=== PATIENT | female | born 1995 | race Caucasian/White ===

== ENCOUNTER 2017-07-27 17:30 | Emergency (ER) | payer SELFPAY ==
[~2017-07-27] VITALS: Ht 157.5 cm; Wt 47.6 kg
[2017-07-27] MEDS ORDERED: KEPPRA500 M4 ORAL (17:38)
[2017-07-27] MEDS ORDERED: TOPIRAMATE25 MG ORAL (17:39)
[2017-07-27 18:07] VITALS: BP 102/68
[2017-07-27 18:11] VITALS: BP 100/58
--- NOTE | 2017-07-27 21:30 | Emergency Room Report ---
History of Present Illness General Chief Complaint: Seizure Source: Patient, EMS Present Illness HPI 22YOF BIBEMS with alleged seizure. Patient cites known epilepsy, compliant with BID keppra and topamax. Took Today. Has enough on her Rx. Requesting refill of Clonazepam because "my doctor is in [place]." States she was in [employer] taxi on way to friends house "1 hour away" - but states her friend ordered her the taxi and she doesnt know where she was going. States seizure for "30 minutes" however EMS denies any post-ictal period Patient and EMS deny any trauma. Last seizure was "more than a year ago." Allergies: Coded Allergies: No Known Allergies (Unverified , 07/27/17) Patient History Past Medical History: seizures Past Surgical History: none Pertinent Family History: none Social History: Denies: smoking, alcohol use, drug use Now: No Immunizations: UTD Reviewed Nursing Documentation: PMH: Agreed, PSxH: Agreed Nursing Documentation-PMH Past Medical History: No History, Except For Hx Seizures: Yes - On Keppra Review of Systems All Other Systems: negative except mentioned in HPI Physical Exam Vital Signs Date Time Temp Pulse Resp B/P (MAP) Pulse Ox O2 Delivery O2 Flow Rate FiO2 07/27/17 17:34 98.4 86 16 102/68 100 07/27/17 18:11 Room Air Sp02 EP Interpretation: reviewed, normal General Appearance: normal inspection, well appearing, no apparent distress, alert, GCS 15, non-toxic Head: normocephalic, atraumatic Eyes: bilateral eye PERRL, bilateral eye EOMI ENT: normal ENT inspection, hearing grossly normal, normal voice Neck: normal inspection, full range of motion, supple, no bony tend Respiratory: normal inspection, lungs clear, normal breath sounds, no respiratory distress, no retraction, no wheezing Cardiovascular #1: regular rate, rhythm, no edema Gastrointestinal: normal inspection, normal bowel sounds, non tender, soft, no guarding, no hernia Genitourinary: no CVA tenderness Musculoskeletal: normal inspection, back normal, normal range of motion, Tigist' s Sign negative Neurologic: normal inspection, alert, oriented x3, responsive, banking officer III-XII nml as tested, motor strength/tone normal Psychiatric: normal inspection, judgement/insight normal, mood/affect normal Skin: normal inspection, normal color, no rash Medical Decision Making Diagnostic Impression: Primary Impression: Seizure disorder ER Course VSS. Afebrile Not post-ictal here Questionable if actually had a seizure If she did, 1x breakthru seizure in >1 year and compliant on meds, reliable Questionable malingering for clonazepam refill "doctor in [place]." Says hasnt taken it in >1 year so low suspicion for benzo withdrawal Advised patient Im not comfortable refilling a controlled substance since I dont followup with patient DC home Last Vital Signs Date Time Temp Pulse Resp B/P (MAP) Pulse Ox O2 Delivery O2 Flow Rate FiO2 07/27/17 18:11 72 16 100/58 100 Room Air 07/27/17 18:07 98.4 Status: improved Disposition: HOME, SELF-CARE Condition: Improved Referrals: NON PHYSICIAN (PCP) Patient Instructions: Seizure, Adult TAVARES BARTHOLOMEW M.D. Jul 27, 2017 21:30
== END 2017-07-27 19:00 | disposition home or self-care (01) ==
LOC: EDBD 17:30 → EMR 18:48
DX: G40.909 Epilepsy, unspecified, not intractable, without status epilepticus (principal); Z79.899 Other long term (current) drug therapy
CPT/HCPCS: 99283